=== PATIENT | male | born 1955 | race Caucasian/White ===

== ENCOUNTER 2017-04-29 11:35 | Emergency (ER) | payer MEDICARE, MEDICAID ==
[~2017-04-29] VITALS: Ht 172.7 cm; Wt 100.0 kg
[~2017-04-29 11:35] MED LIST: LOSA25TA96 PO
[2017-04-29 11:59] LABS: BASOPHILS # (AUTO) 0.1 X10'3 (0-0.2); BASOPHILS % (AUTO) 1.2 % (0-1); EOSINOPHILS # (AUTO) 0.2 X10'3 (0-0.9); EOSINOPHILS % (AUTO) 1.6 % (0-6); HEMOGLOBIN 17.6 g/dl (14.0-17.9); LYMPHOCYTES # (AUTO) 3.1 X10'3 (1.1-4.8); LYMPHOCYTES % (AUTO) 30.1 % (21-51); MEAN CORPUSCULAR HEMOGLOBIN 28.3 PG (27.0-31.0); MEAN CORPUSCULAR HGB CONC 33.7 % (33.0-36.5); MEAN CORPUSCULAR VOLUME 83.8 FL (78-98); MEAN PLATELET VOLUME 7.9 FL (7.4-10.4); MONOCYTES # (AUTO) 0.8 X10'3 (0-0.9); MONOCYTES % (AUTO) 7.8 % (2-12); NEUTROPHILS % (AUTO) 59.3 % (42-75); PLATELET COUNT 207 X10'3 (140-440); RED BLOOD COUNT 6.21 X10'6 (4.70-6.10); RED CELL DISTRIBUTION WIDTH 13.7 % (11.5-14.5); WHITE BLOOD COUNT 10.2 X10'3 (4.5-11.0)
[2017-04-29 12:09] LABS: PARTIAL THROMBOPLASTIN TIME 26 SECONDS (22-32); PROTHROMBIN TIME 10.5 SECONDS (9.0-12.0)
[2017-04-29 12:13] LABS: ALANINE AMINOTRANSFERASE 54 U/L (12-78); ALBUMIN 4.3 G/DL (3.4-5.0); ALBUMIN/GLOBULIN RATIO 1.3 (1.1-1.5); ALKALINE PHOSPHATASE 61 IU/L (46-116); ANION GAP 5 (8-16); ASPARTATE AMINO TRANSFERASE 26 U/L (10-37); BILIRUBIN,TOTAL 0.6 MG/DL (0.1-1.0); BLOOD UREA NITROGEN 16 MG/DL (7-18); BUN/CREATININE RATIO 17.8 (5.4-32.0); CALCIUM 9.3 MG/DL (8.5-10.1); CHLORIDE 105 MMOL/L (99-107); GLUCOSE 113 MG/DL (70-104); POTASSIUM 4.5 MMOL/L (3.5-5.1); SODIUM 143 MMOL/L (135-145); TOTAL CARBON DIOXIDE 33.3 MMOL/L (24-32); TOTAL PROTEIN 7.6 G/DL (6.4-8.2); eGFR 86 ML/MIN
[2017-04-29] MEDS ORDERED: ipratropium/albuterol 3ml nebule NEB ONE (12:20)
[2017-04-29] MEDS ORDERED: normal saline 1000ML IV soln IVB ONE (12:20)
[2017-04-29] MEDS ORDERED: methylPREDNISolone sod succ 125mg/2ml vial IV ONE (12:20)
[2017-04-29] MEDS ORDERED: magnesium 2GM in 50ml NS 50 ML IV ONE (12:20)
[2017-04-29] MEDS ORDERED: PRED20TA PO (13:11)
[2017-04-29] MEDS ORDERED: ALBU18HF2 INH (13:11)
[2017-04-29] MEDS ORDERED: AZIT-63 PO (13:11)
[2017-04-29 14:05] VITALS: BP 127/69
== END 2017-04-29 14:06 | disposition home or self-care (01) ==
LOC: ER 11:36
DX: J44.9 Chronic obstructive pulmonary disease, unspecified (principal); G89.29 Other chronic pain; I10 Essential (primary) hypertension; Z87.891 Personal history of nicotine dependence; Z88.0 Allergy status to penicillin; Z79.899 Other long term (current) drug therapy; Z56.0 Unemployment, unspecified
CPT/HCPCS: 36415; 71020; 80053; 83735; 83880; 84100; 84145; 84484; 85025; 85610; 85730; 93005; 94640; 94760; 96365; 96375; 99285; J2930; J3475; J7030

== ENCOUNTER 2019-05-04 13:43 | Emergency (ER) | payer MEDICAID, MEDICARE, OTHER ==
[~2019-05-04] VITALS: Ht 172.7 cm; Wt 95.6 kg
[~2019-05-04 13:43] MED LIST changes: +ALBU18HF2 INH
[2019-05-04] MEDS ORDERED: acetaminophen 325mg tablet PO STA (13:58)
[2019-05-04] MEDS ORDERED: LIDOcaine 1% W/epiNEPHrine 1:200,000 10ml vial IJ ONE (14:25)
[2019-05-04 14:27] LABS: EOSINOPHILS # (AUTO) 0.1 X10'3 (0-0.9); NEUTROPHILS # (AUTO) 12.5 X10'3 (1.8-7.7); RED CELL DISTRIBUTION WIDTH 13.7 % (11.5-14.5)
[2019-05-04 14:29] LABS: BASOPHILS # (AUTO) 0.2 X10'3 (0-0.2); EOSINOPHILS % (AUTO) 0.4 % (0-6); HEMATOCRIT 48.6 % (42.0-52.0); LYMPHOCYTES # (AUTO) 2.7 X10'3 (1.1-4.8); LYMPHOCYTES % (AUTO) 16.3 % (21-51); MEAN CORPUSCULAR HEMOGLOBIN 28.8 PG (27.0-31.0); MEAN CORPUSCULAR HGB CONC 35.1 g/dL (33.0-36.5); MEAN CORPUSCULAR VOLUME 82.2 FL (78-98); MEAN PLATELET VOLUME 8.6 FL (7.4-10.4); MONOCYTES # (AUTO) 1.1 X10'3 (0-0.9); MONOCYTES % (AUTO) 6.4 % (2-12); NEUTROPHILS % (AUTO) 75.9 % (42-75); PLATELET COUNT 200 X10'3 (140-440); RED BLOOD COUNT 5.91 X10'6 (4.70-6.10); WHITE BLOOD COUNT 16.4 X10'3 (4.5-11.0)
--- NOTE | 2019-05-04 14:39 | NUR ---
PT START[facility] UPPER THIGH. SULFAMETHOXAZOLE 800/160,
[2019-05-04 14:43] LABS: ALANINE AMINOTRANSFERASE 31 U/L (12-78); ALBUMIN 4.4 G/DL (3.4-5.0); ALBUMIN/GLOBULIN RATIO 1.3 (1.1-1.5); ALKALINE PHOSPHATASE 64 IU/L (46-116); ANION GAP 10 (8-16); ASPARTATE AMINO TRANSFERASE 20 U/L (10-37); BILIRUBIN,TOTAL 0.9 MG/DL (0.1-1.0); BLOOD UREA NITROGEN 14 MG/DL (7-18); BUN/CREATININE RATIO 16.7 (5.4-32.0); CALCIUM 8.8 MG/DL (8.5-10.1); CHLORIDE 99 MMOL/L (99-107); CREATININE 0.84 MG/DL (0.60-1.10); GLUCOSE 98 MG/DL (70-104); POTASSIUM 3.9 MMOL/L (3.5-5.1); SODIUM 137 MMOL/L (135-145); TOTAL CARBON DIOXIDE 28.1 MMOL/L (24-32); TOTAL PROTEIN 7.8 G/DL (6.4-8.2); eGFR > 90 ML/MIN
--- NOTE | 2019-05-04 14:46 | NUR ---
PROVIDER IN ROOM FOR I/D PROCEDURE.
[2019-05-04] MEDS ORDERED: probenecid 500mg tablet PO ONE (15:05)
[2019-05-04] MEDS ORDERED: ceFAZolin 1GM/D5W- ADD-VANTAGE 50 ML IV ONE (15:05)
[2019-05-04] MEDS ORDERED: gentamicin inj 150 MG in normal saline 100ml IV soln 100 ML IV ONE (15:05)
[2019-05-04] MEDS ORDERED: HYDROcodone/acetaminophen 5mg/325mg tablet PO ONE (15:05)
[2019-05-04 15:06] LABS: PLATELET ESTIMATE NORMAL; TOTAL CELLS COUNTED 100
[2019-05-04] MEDS ORDERED: CEPH500C5 PO (16:17)
[2019-05-04 16:38] VITALS: BP 135/62
[2019-05-05] MEDS ORDERED: ALPR-385 PO (18:18)
== END 2019-05-04 16:48 | disposition home or self-care (01) ==
LOC: ER 13:43
DX: L02.415 Cutaneous abscess of right lower limb (principal); L03.115 Cellulitis of right lower limb; I10 Essential (primary) hypertension; G89.29 Other chronic pain; Z56.0 Unemployment, unspecified; Z87.891 Personal history of nicotine dependence; Z88.0 Allergy status to penicillin; Z79.899 Other long term (current) drug therapy
CPT/HCPCS: 10060; 36415; 80053; 83605; 84145; 85025; 87040; 87070; 87077; 87186; 96365; 96368; 99284; J0690; J1580

== ENCOUNTER 2019-06-09 13:01 | Emergency (ER) | payer MEDICARE, OTHER ==
[~2019-06-09] VITALS: Ht 172.7 cm; Wt 102.0 kg
[~2019-06-09 13:01] MED LIST changes: -ALBU18HF2 INH; +ALPR-385 PO; +CLIN-90 PO; -LOSA25TA96 PO
[2019-06-09 13:17] VITALS: BP 156/70
== END 2019-06-09 14:14 | disposition home or self-care (01) ==
LOC: ER 13:02
DX: I80.8 Phlebitis and thrombophlebitis of other sites (principal); I10 Essential (primary) hypertension; G89.29 Other chronic pain; F41.9 Anxiety disorder, unspecified; F10.99 Alcohol use, unspecified with unspecified alcohol-induced disorder; Z56.0 Unemployment, unspecified; Z88.1 Allergy status to other antibiotic agents; Z88.0 Allergy status to penicillin; Z88.8 Allergy status to other drugs, medicaments and biological substances; Z79.899 Other long term (current) drug therapy; Y90.9 Presence of alcohol in blood, level not specified
CPT/HCPCS: 99281

== ENCOUNTER 2021-05-22 15:02 | Emergency (ER) | payer OTHER, MEDICARE ==
[~2021-05-22] VITALS: Ht 172.7 cm; Wt 81.3 kg
[~2021-05-22 15:02] MED LIST changes: -CLIN-90 PO; +CLIN-97 PO
[2021-05-22 15:32] VITALS: BP 132/59
== END 2021-05-23 00:28 | disposition left against medical advice (07) ==
LOC: ER 16:45
DX: R10.31 Right lower quadrant pain (principal); I10 Essential (primary) hypertension; G89.29 Other chronic pain; F41.9 Anxiety disorder, unspecified; Z98.890 Other specified postprocedural states; Z72.89 Other problems related to lifestyle; Z56.0 Unemployment, unspecified; Z88.1 Allergy status to other antibiotic agents; Z88.0 Allergy status to penicillin; Z88.8 Allergy status to other drugs, medicaments and biological substances; Z79.2 Long term (current) use of antibiotics; Z53.21 Procedure and treatment not carried out due to patient leaving prior to being seen by health care provider

== ENCOUNTER 2021-06-27 06:39 | Emergency (ER) | payer OTHER, MEDICARE ==
[~2021-06-27] VITALS: Ht 172.7 cm; Wt 80.0 kg
[2021-06-27 06:47] VITALS: BP 119/68
--- NOTE | 2021-06-27 07:18 | NUR ---
C/O pain and redness to medial L foot.
[2021-06-27] MEDS ORDERED: PRED20TA PO (07:36)
[2021-06-27] MEDS ORDERED: INDO50CA96 PO (07:36)
[2021-06-27] MEDS ORDERED: COLC0.6T72 PO (07:36)
[2021-06-27] MEDS ORDERED: ACET-1025 PO (07:36)
[2021-06-27] MEDS: triamcinolone acetonide 40mg/ml inj IM ONE (08:08)
[2021-06-27] MEDS: predniSONE 20 mg tablet PO ONE (08:08)
[2021-06-27] MEDS: ketorolac trometh inj. 60 MG/2 ML VIAL IM ONE (08:08)
[2021-06-27] MEDS: acetaminophen 325mg tablet PO ONE (08:09)
--- NOTE | 2021-06-27 08:15 | NUR ---
Pt given and understands d/c instructions. Ambulatory with a limp.
[2021-06-27] MEDS: prednisone 10mg tablet PO ONE (08:17)
[2021-06-28] MEDS ORDERED: PRED20TA PO (13:57)
[2021-06-28] MEDS ORDERED: ALPR-385 PO (13:57)
[2021-06-28] MEDS ORDERED: INDO50CA96 PO (13:57)
== END 2021-06-27 08:15 | disposition home or self-care (01) ==
LOC: ER 06:40
DX: M10.9 Gout, unspecified (principal); M79.675 Pain in left toe(s); R50.9 Fever, unspecified; I10 Essential (primary) hypertension; G89.29 Other chronic pain; F41.9 Anxiety disorder, unspecified; Z98.890 Other specified postprocedural states; Z72.89 Other problems related to lifestyle; Z56.0 Unemployment, unspecified; Z88.1 Allergy status to other antibiotic agents; Z88.0 Allergy status to penicillin; Z88.8 Allergy status to other drugs, medicaments and biological substances; Z79.2 Long term (current) use of antibiotics
CPT/HCPCS: 96372; 99284; J1885; J3301; J7512

== ENCOUNTER 2021-07-12 10:28 | Emergency (ER) | payer MEDICARE, OTHER ==
[~2021-07-12] VITALS: Ht 172.7 cm; Wt 56.8 kg
[~2021-07-12 10:28] MED LIST changes: +COLC0.6T72 PO; +INDO50CA96 PO; +PRED20TA PO
[2021-07-12 10:42] VITALS: BP 123/57
[2021-07-12 11:22] LABS: BASOPHILS # (AUTO) 0.1 X10'3 (0-0.2); EOSINOPHILS # (AUTO) 0.1 X10'3 (0-0.9); EOSINOPHILS % (AUTO) 0.7 % (0-6); HEMATOCRIT 45.5 % (42.0-52.0); HEMOGLOBIN 15.5 g/dl (14.0-17.9); LYMPHOCYTES # (AUTO) 1.6 X10'3 (1.1-4.8); LYMPHOCYTES % (AUTO) 16.1 % (21-51); MEAN CORPUSCULAR VOLUME 79.6 FL (78-98); MEAN PLATELET VOLUME 8.7 FL (7.4-10.4); MONOCYTES # (AUTO) 0.7 X10'3 (0-0.9); MONOCYTES % (AUTO) 7.1 % (2-12); NEUTROPHILS # (AUTO) 7.3 X10'3 (1.8-7.7); NEUTROPHILS % (AUTO) 75.1 % (42-75); PLATELET COUNT 190 X10'3 (140-440); RED BLOOD COUNT 5.72 X10'6 (4.70-6.10); RED CELL DISTRIBUTION WIDTH 14.5 % (11.5-14.5); WHITE BLOOD COUNT 9.7 X10'3 (4.5-11.0)
--- NOTE | 2021-07-12 11:40 | NUR ---
provider at bedside
[2021-07-12 12:00] LABS: ALANINE AMINOTRANSFERASE 27 U/L (12-78); ALBUMIN 4.1 G/DL (3.4-5.0); ALBUMIN/GLOBULIN RATIO 1.5 (1.1-1.5); ALKALINE PHOSPHATASE 51 IU/L (46-116); ANION GAP 7 (8-16); ASPARTATE AMINO TRANSFERASE 17 U/L (10-37); BLOOD UREA NITROGEN 13 MG/DL (7-18); BUN/CREATININE RATIO 20.3 (5.4-32.0); CALCIUM 8.7 MG/DL (8.5-10.1); CHLORIDE 106 MMOL/L (99-107); CREATININE 0.64 MG/DL (0.60-1.10); GLUCOSE 82 MG/DL (70-104); POTASSIUM 3.9 MMOL/L (3.5-5.1); SODIUM 142 MMOL/L (135-145); TOTAL CARBON DIOXIDE 28.8 MMOL/L (24-32); TOTAL PROTEIN 6.9 G/DL (6.4-8.2); eGFR > 90 ML/MIN
[2021-07-12 12:01] LABS: LIPASE 98 U/L (73-393)
--- NOTE | 2021-07-12 12:01 | NUR ---
PT. STATES NO ISSUES TO AND FROM CT.
[2021-07-12 12:32] LABS: CLARITY,URINE SLIGHTLY CLOUDY (Clear); COLOR,URINE YELLOW (Yellow); GLUCOSE, URINE NEGATIVE (Neg); KETONES,URINE NEGATIVE (Neg); LEUKOCYTE ESTERASE ,URINE SMALL (Neg); NITRITES, URINE NEGATIVE (Neg); OCCULT BLOOD,URINE NEGATIVE (Neg); PH,URINE 5.5 (4.8-8.0); PROTEIN,URINE NEGATIVE (Neg); UROBILINOGEN,URINE 0.2 E.U/dL (0.2-1.0)
[2021-07-12 12:41] LABS: UA COLLECTION TYPE CLN CATCH MIDSTREAM
[2021-07-12 12:42] LABS: APTT 29 SECONDS (22-32)
[2021-07-12 12:42] LABS: BACTERIA,URINE FEW /HPF (Neg); RBC,URINE 0-2 /HPF (0-2); SQUAMOUS EPITHELIAL CELL,UR FEW /LPF (FEW); WBC,URINE 0-4 /HPF (0-4)
--- NOTE | 2021-07-12 13:35 | NUR ---
provider at bedside.
== END 2021-07-12 15:27 | disposition home or self-care (01) ==
LOC: ER 10:30
DX: K40.90 Unilateral inguinal hernia, without obstruction or gangrene, not specified as recurrent (principal); I10 Essential (primary) hypertension; G89.29 Other chronic pain; Z72.89 Other problems related to lifestyle; Z56.0 Unemployment, unspecified; Z88.0 Allergy status to penicillin; Z88.1 Allergy status to other antibiotic agents; Z79.2 Long term (current) use of antibiotics; Z79.899 Other long term (current) drug therapy; Z91.011 Allergy to milk products
CPT/HCPCS: 36415; 74176; 80053; 81001; 83690; 85025; 85610; 85730; 87088; 99284

== ENCOUNTER 2021-08-07 04:00 | Observation (INO) | payer MEDICARE, OTHER ==
[~2021-08-07] VITALS: Ht 172.7 cm; Wt 72.7 kg
[2021-08-07] VITALS (19 sets, daily range): BP systolic 107–151; BP diastolic 46–77
[~2021-08-07 04:00] MED LIST changes: -ALPR-385 PO; -CLIN-97 PO; -COLC0.6T72 PO; -INDO50CA96 PO; +NO HOME MEDS; -PRED20TA PO
--- NOTE | 2021-08-07 04:36 | NUR ---
CHEST XRAY PERFORMED
--- NOTE | 2021-08-07 04:36 | NUR ---
BLOOD SENT TO THE LAB
--- NOTE | 2021-08-07 04:39 | NUR ---
PATIENT STATES THAT HE WAS TOLD TO COME IN FOR PREOP SURGERY FOR HERNIA REPAIRS, TATIANA WAS DIAGNIOSED 3 WEEKS AGO, THE LAST TIME HE HAD ANY THING TO EAT OR DRINK WAS 7PM LAST NIGHT LAST 08/06/2021 PATIENT DENIES PAIN AT THIS TIME .
--- NOTE | 2021-08-07 04:42 | NUR ---
EKG WAS PERFORMED
--- NOTE | 2021-08-07 04:42 | NUR ---
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
[2021-08-07 04:45] LABS: BASOPHILS # (AUTO) 0.1 X10'3 (0-0.2); EOSINOPHILS # (AUTO) 0.1 X10'3 (0-0.9); HEMOGLOBIN 15.6 g/dl (14.0-17.9); LYMPHOCYTES # (AUTO) 2.7 X10'3 (1.1-4.8); MEAN PLATELET VOLUME 8.6 FL (7.4-10.4); MONOCYTES # (AUTO) 0.7 X10'3 (0-0.9); NEUTROPHILS # (AUTO) 5.5 X10'3 (1.8-7.7)
[2021-08-07 04:47] LABS: BASOPHILS % (AUTO) 0.9 % (0-1); EOSINOPHILS % (AUTO) 1.1 % (0-6); HEMATOCRIT 45.4 % (42.0-52.0); MEAN CORPUSCULAR HGB CONC 34.3 g/dL (33.0-36.5); MEAN CORPUSCULAR VOLUME 78.7 FL (78-98); MONOCYTES % (AUTO) 7.9 % (2-12); NEUTROPHILS % (AUTO) 60.1 % (42-75); PLATELET COUNT 195 X10'3 (140-440); RED BLOOD COUNT 5.77 X10'6 (4.70-6.10); RED CELL DISTRIBUTION WIDTH 15.3 % (11.5-14.5); WHITE BLOOD COUNT 9.1 X10'3 (4.5-11.0)
--- NOTE | 2021-08-07 04:47 | NUR ---
PATIENT IS REQUESTING WATER, HOWEVER HE IS TOLD THAT HE MAY GO TO SURGERY, SO MP WATER IS GIVEN AT THIS TIME
[2021-08-07 04:56] LABS: ALANINE AMINOTRANSFERASE 47 U/L (12-78); ALBUMIN 4.1 G/DL (3.4-5.0); ALBUMIN/GLOBULIN RATIO 1.6 (1.1-1.5); ALKALINE PHOSPHATASE 50 IU/L (46-116); ANION GAP 12 (8-16); ASPARTATE AMINO TRANSFERASE 23 U/L (10-37); BILIRUBIN,TOTAL 0.5 MG/DL (0.1-1.0); BLOOD UREA NITROGEN 17 MG/DL (7-18); BUN/CREATININE RATIO 28.3 (5.4-32.0); CALCIUM 8.8 MG/DL (8.5-10.1); CHLORIDE 105 MMOL/L (99-107); GLUCOSE 94 MG/DL (70-104); POTASSIUM 3.8 MMOL/L (3.5-5.1); SODIUM 143 MMOL/L (135-145); TOTAL CARBON DIOXIDE 26.1 MMOL/L (24-32); TOTAL PROTEIN 6.6 G/DL (6.4-8.2); eGFR > 90 ML/MIN
--- NOTE | 2021-08-07 05:28 | NUR ---
PATIENT RESTING COMFORTABLY , WARM BLANKET GIVEN TO PATIENT , BED IN LOWEST POSITION
[2021-08-07] MEDS ORDERED: CLIN300C54 PO ×2 (07:32)
[2021-08-07] MEDS: ringers solution, lacted 1,000 ML IV SCH (10:12)
[2021-08-07] MEDS ORDERED: magnesium 4gm in 100ml NS 100 ML IV PRN (10:45)
[2021-08-07] MEDS ORDERED: metoclopramide 5 mg/ml inj IV PRN (10:45)
[2021-08-07] MEDS ORDERED: magnesium Cl slow-release 64mg tablet PO PRN (10:45)
[2021-08-07] MEDS ORDERED: potassium CL 10mEq/100ml bag 100 ML IV PRN (10:45)
[2021-08-07] MEDS: normal saline 1000ml 1,000 ML IV SCH (10:45)
[2021-08-07] MEDS ORDERED: ondansetron/PF 4mg/2ml inj IV PRN ×2 (10:45→10:50)
[2021-08-07] MEDS ORDERED: magnesium 2GM in 50ml NS 50 ML IV PRN (10:45)
[2021-08-07] MEDS ORDERED: acetaminophen 325mg tablet PO PRN (10:45)
[2021-08-07] MEDS ORDERED: potassium Cl 20 mEq SR tablet PO PRN ×2 (10:45)
[2021-08-07] MEDS ORDERED: labetalol 20mg/4ml (5mg/ml) syringe IV PRN (10:50)
[2021-08-07] MEDS ORDERED: morphine 2 MG/ML inj. syringe IV PRN (10:50)
[2021-08-07] MEDS ORDERED: hydrALAZINE 20mg/ml inj. IV PRN (10:50)
[2021-08-07] MEDS ORDERED: fentaNYL/PF 50MCG/1 ML 2ML syringe IV PRN ×2 (10:50)
[2021-08-07] MEDS ORDERED: morphine 4 MG/ML inj SYRINge IV PRN (10:50)
[2021-08-07] MEDS ORDERED: ringers solution, lacted 1,000 ML IV SCH (10:50)
[2021-08-07] MEDS ORDERED: ringers solution, lacted 1,000 ML IV ONE (10:50)
[2021-08-07 11:08] LABS: MAGNESIUM 2.2 MG/DL (1.5-2.4)
--- NOTE | 2021-08-07 11:50 | NUR ---
PT TRANSFERRED FROM ER. ALERT AND ORIENTED X4
[2021-08-07] MEDS ORDERED: BUPIVAcaine 0.5% inj/PF 30 ML ONE (12:35)
[2021-08-07 12:42] LABS: APTT 28 SECONDS (22-32)
[2021-08-07] MEDS ORDERED: dexamethasone sod phosphate 10mg/ml inj ONE (13:45)
[2021-08-07] MEDS ORDERED: neostigmine methylsulfate 1 MG/ML 10ml vial ONE (13:45)
[2021-08-07] MEDS ORDERED: sevoflurane 250ml liquid IH ONE (13:45)
[2021-08-07] MEDS ORDERED: FENTANYL CITRATE/PF 50 MCG/1 ML VIAL ONE ×2 (13:46→14:37)
[2021-08-07] MEDS ORDERED: midazolam 1 mg/ML 2ml injection ONE (13:47)
[2021-08-07] MEDS ORDERED: propofol inj 20 ML IV ONE ×3 (13:48→13:49)
[2021-08-07] MEDS ORDERED: LIDOcaine 2% (20mg/ml) 5ml vial ONE (13:49)
[2021-08-07] MEDS ORDERED: ceFAZolin 1000mg inj ONE ×2 (13:50)
[2021-08-07] MEDS ORDERED: glycopyrrolate 0.2mg/ml inj ONE (13:50)
[2021-08-07] MEDS ORDERED: ondansetron/PF 4mg/2ml inj ONE (13:50)
[2021-08-07] MEDS ORDERED: rocuronium 10mg/ml inj IV ONE (13:50)
[2021-08-07] MEDS ORDERED: hydrALAZINE 20mg/ml inj. IV ONE (14:20)
[2021-08-07] MEDS ORDERED: ketorolac trometh. 30mg/ml inj. ONE (14:38)
[2021-08-07] MEDS ORDERED: acetaminophen 1,000mg/100ml IV 100 ML IV ONE (14:39)
--- NOTE | 2021-08-07 15:21 | NUR ---
Received from OR via HOSPITAL BED , accompanied by Anesthesiologist DR MCKEON and report given by Anesthesiolgist. PT PRESENTS WITH PIV 20G LEFT FOREARM, ABD DRESSING FREDDY BENNETT. Addendum: 08/07/21 at 1526 by Corin Macedo RN, RN Amended: Links added.
--- NOTE | 2021-08-07 16:26 | NUR ---
Report called to receiving nurse DALIA LY. Transferred via HOSPITAL BED TO ROOM 345A WHERE OR TECHS TOOK PT TO FLOOR., PT BELONIGINGS WERE LEFT IN ROOM 345A. PT WAS SENT WITH UPPER AND LOWER DENTURES TO ROOM 345A. Special Issues communicated to receiving nurse. Addendum: 08/07/21 at 1635 by Corin Macedo RN, RN Amended: Links added.
[2021-08-07] MEDS: HYDROmorph./NS 0.2 mg/ml CADD 50 ML IV SCH ×4 (17:35→23:00)
[2021-08-07] MEDS ORDERED: naloxone 0.4 mg/ml inj IV PRN (17:35)
[2021-08-07] MEDS ORDERED: CADD PCA waste documentation MC PRN (17:35)
--- NOTE | 2021-08-07 18:20 | NUR ---
Patient in room [facility]. I have received report from DALIA LY and had the opportunity to ask questions and assume patient care.
--- NOTE | 2021-08-07 18:39 | NUR ---
Problems reprioritized. Patient report given, questions answered & plan of care reviewed with BANDAR LY.
[2021-08-07] MEDS ORDERED: FAMOTIDINE IV SCH (20:00)
[2021-08-07] MEDS ORDERED: NORMAL SALINE IV SCH (20:00)
[2021-08-07] MEDS: K and/or MAG REPLACEMENT MC SCH (20:00)
[2021-08-07] MEDS: famotidine/PF 10 mg/ml inj IV SCH (21:04)
[2021-08-08] VITALS: BP 130/71
[2021-08-08] MEDS: HYDROmorph./NS 0.2 mg/ml CADD 50 ML IV SCH ×4 (01:00→07:00)
[2021-08-08] MEDS: ringers solution, lacted 1,000 ML IV SCH (05:55)
[2021-08-08] MEDS ORDERED: famotidine 20mg tablet PO ONE (06:00)
[2021-08-08 06:06] LABS: BASOPHILS % (AUTO) 0.1 % (0-1); EOSINOPHILS % (AUTO) 0 % (0-6); HEMATOCRIT 41.1 % (42.0-52.0); LYMPHOCYTES # (AUTO) 1.6 X10'3 (1.1-4.8); LYMPHOCYTES % (AUTO) 11.8 % (21-51); MEAN CORPUSCULAR HEMOGLOBIN 26.8 PG (27.0-31.0); MEAN CORPUSCULAR HGB CONC 34.1 g/dL (33.0-36.5); MEAN CORPUSCULAR VOLUME 78.7 FL (78-98); MEAN PLATELET VOLUME 8.7 FL (7.4-10.4); MONOCYTES # (AUTO) 0.6 X10'3 (0-0.9); MONOCYTES % (AUTO) 4.5 % (2-12); NEUTROPHILS # (AUTO) 11.6 X10'3 (1.8-7.7); NEUTROPHILS % (AUTO) 83.6 % (42-75); PLATELET COUNT 207 X10'3 (140-440); RED BLOOD COUNT 5.23 X10'6 (4.70-6.10); RED CELL DISTRIBUTION WIDTH 14.8 % (11.5-14.5); WHITE BLOOD COUNT 13.9 X10'3 (4.5-11.0)
[2021-08-08] MEDS: normal saline 1000ml 1,000 ML IV SCH (06:06)
[2021-08-08 06:23] LABS: ALBUMIN 3.6 G/DL (3.4-5.0); ANION GAP 7 (8-16); BLOOD UREA NITROGEN 12 MG/DL (7-18); CALCIUM 8.7 MG/DL (8.5-10.1); CHLORIDE 106 MMOL/L (99-107); CREATININE 0.63 MG/DL (0.60-1.10); GLUCOSE 115 MG/DL (70-104); MAGNESIUM 2.1 MG/DL (1.5-2.4); SODIUM 140 MMOL/L (135-145); eGFR > 90 ML/MIN
--- NOTE | 2021-08-08 06:33 | NUR ---
Patient in room [facility]. I have received report from MALACHI Corondao and had the opportunity to ask questions and assume patient care.
[2021-08-08 07:00] VITALS: BP 136/52
[2021-08-08] MEDS: famotidine/PF 10 mg/ml inj IV SCH (07:55)
[2021-08-08] MEDS: K and/or MAG REPLACEMENT MC SCH (08:00)
--- NOTE | 2021-08-08 10:54 | NUR ---
PAGER ID: [phone] MESSAGE: Mychal Quach Has been cleared by Dr. Miranda for discharge. Patient is asking to go home. Would it be possible to put the discharge order in. Please. Thank you. Donna [phone]
--- NOTE | 2021-08-08 12:22 | NUR ---
Patient discharged at 1200 with instructions and verbalizing understanding of instructions. He left accompanied by nursing staff and going home via private vehicle. All lines have been removed (IV cannula intact). Medications have been sent to private pharmacy and education has been provided and questions answered. Pt. will set up follow up appointment with provider. Patient is stable and appropriate for discharge.
== END 2021-08-08 11:40 | disposition home or self-care (01) ==
LOC: ER 04:01 → ED HOLD 10:46 → SUR 3N 11:46
PROVIDERS: ADMIT Internal Medicine; ATTEND Internal Medicine
DX: K40.90 Unilateral inguinal hernia, without obstruction or gangrene, not specified as recurrent (principal); Z20.822 Contact with and (suspected) exposure to COVID-19; I10 Essential (primary) hypertension; F41.9 Anxiety disorder, unspecified; G89.29 Other chronic pain; M54.9 Dorsalgia, unspecified; M54.2 Cervicalgia; Z79.899 Other long term (current) drug therapy; Z90.49 Acquired absence of other specified parts of digestive tract; Z88.0 Allergy status to penicillin
CPT/HCPCS: 36415; 49650; 71045; 80048; 80053; 82948; 83735; 85025; 85610; 85730; 87635; 93005; 96374; 96375; 99285; C1758; C1781; C9803; G0378; J0131; J0360; J0690; J1100; J1885; J2250; J2405; J2704; J2710; J3010; J3490; J7030; J7120; S0020; S2900; A4215; A4618

== ENCOUNTER 2021-11-04 08:59 | Emergency (ER) | payer OTHER, MEDICARE ==
[~2021-11-04] VITALS: Ht 172.7 cm; Wt 77.3 kg
[2021-11-04] MEDS ORDERED: ondansetron 4mg rapidly disintigrating tab PO ONE (09:15)
[2021-11-04] MEDS ORDERED: ibuprofen 200mg tablet PO ONE (09:15)
[2021-11-04 11:16] VITALS: BP 144/58
== END 2021-11-04 11:17 | disposition home or self-care (01) ==
LOC: ER 08:59
DX: N43.3 Hydrocele, unspecified (principal); K40.91 Unilateral inguinal hernia, without obstruction or gangrene, recurrent; G89.29 Other chronic pain; M54.9 Dorsalgia, unspecified; I10 Essential (primary) hypertension; Z88.1 Allergy status to other antibiotic agents; Z88.0 Allergy status to penicillin; Z79.899 Other long term (current) drug therapy; Z91.040 Latex allergy status
CPT/HCPCS: 76870; 93976; 99284

== ENCOUNTER 2022-02-10 03:37 | Emergency (ER) | payer OTHER, MEDICARE ==
[~2022-02-10] VITALS: Ht 172.7 cm; Wt 84.9 kg
[2022-02-10 03:41] VITALS: BP 175/74
== END 2022-02-10 06:24 | disposition left against medical advice (07) ==
LOC: ER 03:38
DX: R10.30 Lower abdominal pain, unspecified (principal); Z53.21 Procedure and treatment not carried out due to patient leaving prior to being seen by health care provider

== ENCOUNTER 2022-03-19 10:33 | Day surgery (SDC) | payer OTHER ==
[2022-03-19] VITALS (9 sets, daily range): BP systolic 124–174; BP diastolic 60–78
[~2022-03-19] VITALS: Ht 175.3 cm; Wt 98.8 kg
[~2022-03-19 10:33] MED LIST changes: +MULT-1085 PO; -NO HOME MEDS; +OMEG-5 PO; +UBID100T7 PO; +ceFAZolin inj. 2,000 MG in dextrose 5%-water 100 ML IV ONE; +famotidine 20mg tablet PO ONE; +ringers solution, lacted 1,000 ML IV SCH
[2022-03-19] MEDS ORDERED: labetalol 20mg/4ml (5mg/ml) syringe IV PRN (11:30)
[2022-03-19] MEDS ORDERED: ringers solution, lacted 1,000 ML IV SCH (11:30)
[2022-03-19] MEDS ORDERED: fentaNYL/PF 50MCG/1 ML 2ML syringe IV PRN ×2 (11:30)
[2022-03-19] MEDS ORDERED: ondansetron/PF 4mg/2ml inj IV PRN (11:30)
[2022-03-19] MEDS ORDERED: morphine 4 MG/ML inj SYRINge IV PRN (11:30)
[2022-03-19] MEDS ORDERED: morphine 2 MG/ML inj. syringe IV PRN (11:30)
[2022-03-19] MEDS ORDERED: hydrALAZINE 20mg/ml inj. IV PRN (11:30)
[2022-03-19 11:50] LABS: EOSINOPHILS # (AUTO) 0.1 X10'3 (0-0.9); LYMPHOCYTES # (AUTO) 2.4 X10'3 (1.1-4.8); MEAN PLATELET VOLUME 8.6 FL (7.4-10.4); MONOCYTES # (AUTO) 0.8 X10'3 (0-0.9); PRE OP HEMOGLOBIN 16.4 g/dL (14.0-17.9); RED CELL DISTRIBUTION WIDTH 14.4 % (11.5-14.5)
[2022-03-19 11:51] LABS: BASOPHILS % (AUTO) 0.2 % (0-1); EOSINOPHILS % (AUTO) 1.2 % (0-6); LYMPHOCYTES % (AUTO) 25.7 % (21-51); MEAN CORPUSCULAR HEMOGLOBIN 27.6 PG (27.0-31.0); MEAN CORPUSCULAR HGB CONC 33.5 g/dL (33.0-36.5); MEAN CORPUSCULAR VOLUME 82.5 FL (78-98); MONOCYTES % (AUTO) 8.1 % (2-12); NEUTROPHILS # (AUTO) 6.1 X10'3 (1.8-7.7); NEUTROPHILS % (AUTO) 64.8 % (42-75); PRE OP HEMATOCRIT 48.9 % (42.0-52.0); PRE OP PLATELET COUNT 165 X10'3 (140-440); RED BLOOD COUNT 5.92 X10'6 (4.70-6.10)
[2022-03-19 11:52] LABS: CLARITY,URINE CLEAR (Clear); COLOR,URINE YELLOW (Yellow); GLUCOSE, URINE NEGATIVE (Neg); KETONES,URINE NEGATIVE (Neg); LEUKOCYTE ESTERASE ,URINE NEGATIVE (Neg); NITRITES, URINE NEGATIVE (Neg); OCCULT BLOOD,URINE NEGATIVE (Neg); PROTEIN,URINE NEGATIVE (Neg); UA COLLECTION TYPE NON-SPECIFIED; UROBILINOGEN,URINE 0.2 E.U/dL (0.2-1.0)
[2022-03-19 12:32] LABS: GIANT PLATELET FEW; PLATELET ESTIMATE NORMAL
[2022-03-19 13:00] LABS: ALANINE AMINOTRANSFERASE 25 U/L (12-78); ALBUMIN 3.8 G/DL (3.4-5.0); ALBUMIN/GLOBULIN RATIO 1.5 (1.1-1.5); ALKALINE PHOSPHATASE 53 IU/L (46-116); ANION GAP 5 (8-16); ASPARTATE AMINO TRANSFERASE 24 U/L (10-37); BLOOD UREA NITROGEN 13 MG/DL (7-18); BUN/CREATININE RATIO 19.1 (5.4-32.0); CALCIUM 8.6 MG/DL (8.5-10.1); CHLORIDE 104 MMOL/L (99-107); CREATININE 0.68 MG/DL (0.60-1.10); GLUCOSE 99 MG/DL (70-104); POTASSIUM 3.9 MMOL/L (3.5-5.1); SODIUM 138 MMOL/L (135-145); TOTAL CARBON DIOXIDE 28.9 MMOL/L (24-32); TOTAL PROTEIN 6.4 G/DL (6.4-8.2); eGFR > 90 ML/MIN
[2022-03-19] MEDS ORDERED: bacitracin 15gm ointment TP ONE (13:24)
[2022-03-19] MEDS ORDERED: BUPIVAcaine/PF 2.5mg/ml (0.25%) 10ml vial ONE (13:24)
[2022-03-19] MEDS ORDERED: fentaNYL/PF 50MCG/1 ML 2ML syringe ONE (13:29)
[2022-03-19] MEDS ORDERED: dexamethasone sod phosphate 4mg/ml inj. ONE (13:37)
[2022-03-19] MEDS ORDERED: ondansetron/PF 4mg/2ml inj ONE (13:38)
[2022-03-19] MEDS ORDERED: LIDOcaine 2% (20mg/ml) 5ml vial ONE (13:38)
[2022-03-19] MEDS ORDERED: propofol inj 20 ML IV ONE (13:38)
[2022-03-19] MEDS ORDERED: hydrALAZINE 20mg/ml inj. IV ONE (13:54)
[2022-03-19] MEDS ORDERED: meperidine/PF 50mg/ml syringe ONE (14:00)
[2022-03-19] MEDS ORDERED: ceFAZolin 1000mg inj IR ONE (14:02)
--- NOTE | 2022-03-19 14:35 | NUR ---
Received from OR via BED, accompanied by Anesthesiologist and report given by Anesthesiologist. PATIENT WAKING UP, NO S/S OF PAIN, V/S WNL, SCD ON, 20G TO LUE, RIGHT GROIN DRESSING CLEAN W/ NO S/S OF COMPLICATIONS, DRY AND INTACT
--- NOTE | 2022-03-19 15:45 | NUR ---
PATIENT A&OX4, DENIES PAIN, V/S WNL, SCD OFF, 20G TO LUE D/C, RIGHT GROIN DRESSING CLEAN W/ NO S/S OF COMPLICATIONS, DRY AND INTACT. PATIENT HAS VOIDED 600+ URINE. . I HAVE REVIEWED D/C INSTRUCTIONS WITH PATIENT and they have verbalized understanding patient d/c home with all belongings and family gave transport home.
== END 2022-03-19 15:45 | disposition home or self-care (01) ==
LOC: PAS 10:33
PROVIDERS: ATTEND Surgery
DX: K40.91 Unilateral inguinal hernia, without obstruction or gangrene, recurrent (principal); F41.9 Anxiety disorder, unspecified; I10 Essential (primary) hypertension; D17.6 Benign lipomatous neoplasm of spermatic cord; Z79.899 Other long term (current) drug therapy; Z88.0 Allergy status to penicillin; Z88.8 Allergy status to other drugs, medicaments and biological substances
CPT/HCPCS: 36415; 49520; 80053; 81003; 82948; 85025; 93005; C1781; J0360; J0690; J1100; J2175; J2270; J2405; J2704; J3010; J3490; J7030; J7060; J7120; Z7506; Z7508; Z7512; 85008; A4215; A4618; A7000